=== PATIENT | female | born 1960 | race Asian ===

== ENCOUNTER → 2016-10-15 | Outpatient (CLI) | payer OTHER ==
[~2016-10-15] MED LIST: IBUP-1050 PO; MISCCAP80 PO; MULT-506 PO; [UNRECOGNIZED DRUG - OTHER] PO
== END | disposition home or self-care (01) ==
LOC: C.PATHSPEC 12:58
DX: B07.9 Viral wart, unspecified (principal)

== ENCOUNTER → 2017-05-28 | Outpatient (CLI) | payer OTHER | END | disposition home or self-care (01) | LOC: C.PAPS 11:41 | PROVIDERS: ATTEND Obstetrics & Gynecology | DX: Z12.4 Encounter for screening for malignant neoplasm of cervix (principal) ==

== ENCOUNTER → 2017-07-20 | Outpatient (CLI) | payer OTHER | END | disposition home or self-care (01) | LOC: C.PATHSPEC 16:09 | PROVIDERS: ATTEND Obstetrics & Gynecology | DX: N92.0 Excessive and frequent menstruation with regular cycle (principal) ==